=== PATIENT | male | born 1960 | race Asian ===

== ENCOUNTER 2023-09-01 08:00 | Outpatient (CLI) | payer OTHER ==
--- NOTE | 2023-09-01 20:25 | XRAY Report ---
PROCEDURE: Ankle 3 View LT INDICATIONS: LEFT ANKLE ORIF TECHNIQUE: 3 views of the ankle were acquired. COMPARISON: None FINDINGS: Bones: Cortical sideplate and screws noted in the left distal fibula. Cannulated screw transfixes th e medial malleolus. Ankle mortise is maintained Soft tissues: Unremarkable without significant soft tissue swelling. No radiopaque foreign body. IMPRESSION: Bimalleolar orthopedic hardware in good position. No failure. Reviewed by: Kevin Gtz MD on 09/01/2023 7:24 PM [place] Approved by: Kevin Gtz MD on 09/01/2023 7:24 PM [place] Station ID: [id number]
== END 2023-09-01 23:59 | disposition home or self-care (01) ==
LOC: DI.WOS 08:00
PROVIDERS: ATTEND Orthopaedic Surgery
DX: S82.852D Displaced trimalleolar fracture of left lower leg, subsequent encounter for closed fracture with routine healing (principal)

== ENCOUNTER 2023-09-30 11:00 | Outpatient (CLI) | payer OTHER ==
--- NOTE | 2023-09-30 19:26 | XRAY Report ---
PROCEDURE: Ankle 3 View LT INDICATIONS: LEFT ANKLE ORIF TECHNIQUE: 3 views of the ankle were acquired. COMPARISON: Left ankle radiograph on September 01, 2023 FINDINGS: Bones: Fibular lateral plate and screw fixation and cannulated screw transfixing the medial malleolu s. Hardware is intact with no perihardware lucency to suggest hardware loosening No acute fractures o r dislocations. Ankle mortise is normally aligned on weightbearing view. No suspicious bony lesions . Soft tissues: No tibiotalar joint effusion. Achilles tendon appears normal. IMPRESSION: Bimalleolar surgical plate and screw fixations are intact without complication. Stable alignment. Reviewed by: Arlette Matson MD on 09/30/2023 7:24 PM PST Approved by: Arlette Matson MD on 09/30/2023 7:24 PM PST Station ID: [id number]
== END 2023-09-30 23:59 | disposition home or self-care (01) ==
LOC: DI.WOS 11:00
PROVIDERS: ATTEND Orthopaedic Surgery
DX: S82.852D Displaced trimalleolar fracture of left lower leg, subsequent encounter for closed fracture with routine healing (principal)

== ENCOUNTER 2024-05-26 08:00 | Outpatient (CLI) | payer BC, OTHER ==
--- NOTE | 2024-05-27 11:50 | XRAY Report ---
PROCEDURE: Chest 2V INDICATIONS: COUGH TECHNIQUE: 2 views of the chest were acquired. COMPARISON: None. FINDINGS: Surgical changes and devices: None. Lungs and pleura: No pleural effusions or pneumothorax. Lungs are clear. Mediastinum: Mediastinal contours appear normal. Heart size is normal. Bones and chest wall: No suspicious bony lesions. Overlying soft tissues appear unremarkable. IMPRESSION: No acute cardiopulmonary process. Reviewed by: Elliott Rizvi MD on 05/27/2024 11:49 AM PDT Approved by: Elliott Rizvi MD on 05/27/2024 11:49 AM PDT Station ID: [id number]
== END 2024-05-26 23:59 | disposition home or self-care (01) ==
LOC: DI.S 08:00
PROVIDERS: ATTEND Internal Medicine
DX: R05.9 Cough, unspecified (principal)

== ENCOUNTER 2024-06-21 13:09 | Outpatient (CLI) | payer BC ==
--- NOTE | 2024-06-22 09:52 | XRAY Report ---
PROCEDURE: Ankle 3+V LT INDICATIONS: DISPLACED TRIMALLEOLAR FRACTURE OF LEFT LOWER LEG TECHNIQUE: 3 views of the ankle were acquired. COMPARISON: 09/30/2023 FINDINGS: Bones: Plate/screw fixation of the distal fibula and medial malleolus appears similar to prior. Ankle mortise appears intact. Background mild degenerative changes Soft tissues: No suspicious calcifications. IMPRESSION: Similar postsurgical findings of the ankle. No acute changes. Background mild arthrosis. Reviewed by: Troy Alcantara MD on 06/22/2024 9:50 AM PDT Approved by: Troy Alcantara MD on 06/22/2024 9:50 AM PDT Station ID: [id number]
== END 2024-06-21 13:10 | disposition home or self-care (01) ==
LOC: DI 13:09
PROVIDERS: ATTEND Orthopaedic Surgery
DX: S82.852D Displaced trimalleolar fracture of left lower leg, subsequent encounter for closed fracture with routine healing (principal); M19.072 Primary osteoarthritis, left ankle and foot